=== PATIENT | male | born 1960 | race Caucasian/White ===

== ENCOUNTER 2023-06-12 21:57 | Inpatient (IN) | payer MEDICARE, OTHER ==
[~2023-06-12] VITALS: Ht 177.8 cm; Wt 99.8 kg
[2023-06-12 22:53] LABS: APPEARANCE,URINE CLEAR (CLEAR); BILIRUBIN,URINE NEGATIVE (NEGATIVE); BLOOD, URINE TRACE-INTA Ery/uL (NEGATIVE); COLOR,URINE YELLOW (YELLOW); KETONES,URINE NEGATIVE (NEGATIVE); LEUKOCYTE ESTERASE ,URINE 1+ (NEGATIVE); NITRITE, URINE NEGATIVE (NEGATIVE); PH,URINE 5.5 (5.0-8.0); PROTEIN,URINE NEGATIVE (NEGATIVE); UGLUCOSE 3+ mg/dL (NEGATIVE); UROBILINOGEN,URINE 0.2 EU/dL (0.2)
[2023-06-12 23:06] LABS: ADD URINE CULTURE YES; BACTERIA,URINE Rare /HPF (None Seen); RBC,URINE 0-2 /HPF (0-2); SQUAMOUS EPITHELIAL CELL,UR Few /HPF (None Seen)
[2023-06-12 23:27] LABS: AMPHETAMINE, URINE NEGATIVE (NEGATIVE); BARBITURATE, URINE NEGATIVE (NEGATIVE); BENZODIAZEPINE, URINE NEGATIVE (NEGATIVE); CANNABINOID, URINE NEGATIVE (NEGATIVE); COCCAINE, URINE NEGATIVE (NEGATIVE); OPIATE, URINE NEGATIVE (NEGATIVE); PHENCYCLIDINE SCREEN,URINE NEGATIVE (NEGATIVE)
[2023-06-12 23:30] LABS: BASOPHILS # (AUTO) 0.1 K/uL (0.0-0.2); BASOPHILS % (AUTO) 0.4 % (0.0-2.0); EOSINOPHILS # (AUTO) 0.3 K/uL (0.0-0.7); EOSINOPHILS % (AUTO) 2.1 % (0.0-6.0); HEMATOCRIT 50 % (39-51); HEMOGLOBIN 16.8 g/dL (13.5-17.5); LYMPHOCYTES # (AUTO) 2.4 K/uL (0.8-4.8); LYMPHOCYTES % (AUTO) 16.3 % (20.0-44.0); MEAN CORPUSCULAR HEMOGLOBIN 30 PG (26.0-33.0); MEAN CORPUSCULAR HGB CONC 34 g/dl (31.0-36.0); MEAN CORPUSCULAR VOLUME 90 fL (80-96); NEUTROPHILS # (AUTO) 10.8 K/uL (1.8-8.9); NEUTROPHILS % (AUTO) 74.2 % (43.0-81.0); PLATELET COUNT (AUTO) 219 K/uL (150-450); RED BLOOD CELL COUNT(AUTO) 5.54 MIL/uL (4.5-6.0); RED CELL DISTRIBUTION WIDTH 13.5 % (11.5-15.0); WHITE BLOOD COUNT (AUTO) 14.6 K/uL (4.3-11.0)
[2023-06-12 23:43] LABS: CALCIUM, SERUM 9.6 mg/dL (8.5-10.1); CARBON DIOXIDE 23 mmol/L (21-32); CHLORIDE 101 mmol/L (98-107); CREATININE 0.6 mg/dL (0.6-1.3); GLUCOSE 163 mg/dL (74-106); POTASSIUM 3.5 mmol/L (3.5-5.1); SODIUM SERUM 132 mmol/L (136-145); UREA NITROGEN, BLOOD 15 mg/dL (7-18)
[2023-06-12 23:48] LABS: ALANINE AMINOTRANSFERASE 27 U/L (12-78); ALBUMIN 3.2 g/dL (3.4-5.0); ALKALINE PHOSPHATASE 104 U/L (46-116); ASPARTATE AMINOTRANSFERASE 21 U/L (15-37); BILIRUBIN,DIRECT 0.2 mg/dL (0.0-0.2); BILIRUBIN,TOTAL 0.8 mg/dL (0.2-1.0); TOTAL PROTEIN, SERUM 7.7 g/dL (6.4-8.2)
[2023-06-12 23:52] LABS: ACETAMINOPHEN <10 ug/ml (10-30); ALCOHOL, BLOOD < 3 mg/dL (0-10); SALICYLATE 1.4 mg/dL (2.8-20.0)
[2023-06-13] MEDS ORDERED: OMEG1CAP PO (02:07)
[2023-06-13] MEDS ORDERED: INSU100V7 SQ (02:07)
[2023-06-13] MEDS ORDERED: OLAN15TA3 PO (02:07)
[2023-06-13] MEDS ORDERED: PRAZ2CAP2 PO (02:07)
[2023-06-13] MEDS ORDERED: SERT50TA PO (02:07)
[2023-06-13] MEDS ORDERED: EMPA25TA PO (02:07)
[2023-06-13] MEDS ORDERED: DULA1.5P SQ (02:07)
[2023-06-13] MEDS ORDERED: CHOL500062 PO (02:07)
[2023-06-13] MEDS ORDERED: LITH300T3 PO (02:07)
[2023-06-13] MEDS ORDERED: CLON-418 PO (02:07)
[2023-06-13] MEDS ORDERED: GABA600T12 PO (02:07)
[2023-06-13] MEDS ORDERED: DOCU100C36 PO (02:07)
[2023-06-13] MEDS ORDERED: METF-440 PO (02:07)
[2023-06-13] MEDS ORDERED: LOSA25TA27 PO (02:07)
[2023-06-13] MEDS ORDERED: MAGNESIUM HYDROXIDE 30 ML UDC PO PRN (03:00)
[2023-06-13] MEDS ORDERED: MAG HYDROX/AL HYDROX/SIMETH 30 ML UDC PO PRN (03:00)
[2023-06-13] MEDS ORDERED: BLOOD SUGAR DIAGNOSTIC 1 EACH STRIP IN ONE (03:00)
[2023-06-13] MEDS ORDERED: ZOLPIDEM TARTRATE 5 MG TABLET PO PRN (03:00)
[2023-06-13] MEDS: LORAZEPAM 1 MG TABLET PO PRN ×2 (03:11→21:09)
[2023-06-13] MEDS ORDERED: INSULIN REGULAR, HUMAN 100 UNIT/ML 3 ML VIAL SQ PRN (04:30)
[2023-06-13] MEDS ORDERED: DEXTROSE 50%-WATER 50 ML DISP.SYRIN IV PRN ×2 (04:30→10:00)
[2023-06-13 06:25] VITALS: BP 125/103; TEMP 97.7; O2SAT 95
[2023-06-13 08:00] VITALS: BP 154/97; TEMP 98.1; O2SAT 95
[2023-06-13] MEDS ORDERED: POLY15DR40 EACHEYE (08:19)
[2023-06-13] MEDS ORDERED: INSU100V3 SQ (08:19)
[2023-06-13] MEDS: BLOOD SUGAR DIAGNOSTIC 1 EACH STRIP IN SCH ×5 (08:25→22:05)
[2023-06-13] MEDS ORDERED: OLANZAPINE 10 MG VIAL IM ONE (12:00)
[2023-06-13] MEDS: GABAPENTIN 300 MG CAPSULE PO SCH ×2 (13:00→16:42)
[2023-06-13] MEDS ORDERED: CLONIDINE HCL 0.1 MG TABLET PO PRN (13:00)
[2023-06-13 13:04] LABS: THYROID STIMULATING HORMONE 0.624 uIU/mL (0.358-3.74)
[2023-06-13] MEDS: PRAZOSIN HCL 1 MG CAPSULE PO SCH (13:36)
[2023-06-13] MEDS: CHOLECALCIFEROL 1,000 UNIT TABLET (VIT D3) PO SCH (13:36)
[2023-06-13] MEDS: LITHIUM CARBONATE (300 MG CAP) 300 MG CAPSULE PO SCH ×2 (13:38→16:50)
[2023-06-13] MEDS: NICOTINE PATCH (14MG) 14 MG PATCH.TD24 TD SCH (14:11)
[2023-06-13 16:00] VITALS: BP 139/86; TEMP 98.2; O2SAT 95
[2023-06-13] MEDS: risperiDONE 1 MG TABLET PO SCH (16:40)
[2023-06-13] MEDS: LEVOFLOXACIN (250MG) 250 MG TABLET PO SCH (16:50)
[2023-06-13] MEDS: METFORMIN 500 MG TABLET PO SCH (16:50)
[2023-06-13] MEDS: POLYVINYL ALCOHOL 15 ML BOTTLE EACHEYE SCH (16:50)
[2023-06-13] MEDS ORDERED: Medication Not On Formulary EA (Omega-3 Fatty Acids/Fish Oil (Fish Oil 1,000 Mg Capsule) PO SCH (17:00)
[2023-06-13] MEDS: INSULIN REGULAR, HUMAN 100 UNIT/ML 3 ML VIAL SQ PRN ×2 (18:58→22:05)
[2023-06-13 20:00] VITALS: BP 111/71; TEMP 98.4; O2SAT 95
[2023-06-13] MEDS: INSULIN GLARGINE, 100 UNIT/ML CARTRIDGE SQ SCH (22:00)
[2023-06-14] MEDS: LORAZEPAM 1 MG TABLET PO PRN ×2 (05:52→14:59)
[2023-06-14] MEDS: BLOOD SUGAR DIAGNOSTIC 1 EACH STRIP IN SCH ×4 (06:40→22:33)
[2023-06-14] MEDS: INSULIN REGULAR, HUMAN 100 UNIT/ML 3 ML VIAL SQ PRN ×4 (06:46→22:21)
[2023-06-14 06:50] LABS: BASOPHILS % (AUTO) 0.4 % (0.0-2.0); EOSINOPHILS # (AUTO) 0.3 K/uL (0.0-0.7); EOSINOPHILS % (AUTO) 2.3 % (0.0-6.0); HEMATOCRIT 50 % (39-51); HEMOGLOBIN 16.7 g/dL (13.5-17.5); LYMPHOCYTES # (AUTO) 1.6 K/uL (0.8-4.8); LYMPHOCYTES % (AUTO) 13.5 % (20.0-44.0); MEAN CORPUSCULAR HEMOGLOBIN 30 PG (26.0-33.0); MEAN CORPUSCULAR HGB CONC 34 g/dl (31.0-36.0); MEAN CORPUSCULAR VOLUME 90 fL (80-96); MONOCYTES % (AUTO) 8.1 % (2.0-12.0); NEUTROPHILS % (AUTO) 75.7 % (43.0-81.0); PLATELET COUNT (AUTO) 226 K/uL (150-450); RED BLOOD CELL COUNT(AUTO) 5.55 MIL/uL (4.5-6.0); RED CELL DISTRIBUTION WIDTH 13.4 % (11.5-15.0); WHITE BLOOD COUNT (AUTO) 11.9 K/uL (4.3-11.0)
[2023-06-14 07:09] LABS: CREATININE 0.8 mg/dL (0.6-1.3)
[2023-06-14 07:16] LABS: CHOLESTEROL 148 mg/dL (<200); HDL CHOLESTEROL 35 mg/dL (40-60); LDL 87 mg/dL (0-99); TRIGLYCERIDES 143 mg/dL (30-150)
[2023-06-14 08:00] VITALS: BP 126/98; TEMP 98.1; O2SAT 98
[2023-06-14] MEDS: LITHIUM CARBONATE (300 MG CAP) 300 MG CAPSULE PO SCH ×3 (08:35→16:26)
[2023-06-14] MEDS: NICOTINE PATCH (14MG) 14 MG PATCH.TD24 TD SCH (08:35)
[2023-06-14] MEDS: METFORMIN 500 MG TABLET PO SCH ×2 (08:35→16:27)
[2023-06-14] MEDS: CHOLECALCIFEROL 1,000 UNIT TABLET (VIT D3) PO SCH (08:35)
[2023-06-14] MEDS: GABAPENTIN 300 MG CAPSULE PO SCH ×3 (08:35→16:26)
[2023-06-14] MEDS: risperiDONE 1 MG TABLET PO SCH ×2 (08:36→16:27)
[2023-06-14] MEDS: DOCUSATE SODIUM 100 MG CAPSULE PO SCH (08:36)
[2023-06-14] MEDS: EMPAGLIFLOZIN 25 MG TABLET PO SCH (08:37)
[2023-06-14] MEDS: LOSARTAN POTASSIUM 25 MG TABLET PO SCH (08:37)
[2023-06-14] MEDS: POLYVINYL ALCOHOL 15 ML BOTTLE EACHEYE SCH ×2 (08:38→16:29)
[2023-06-14] MEDS: PRAZOSIN HCL 1 MG CAPSULE PO SCH (08:43)
[2023-06-14 09:09] LABS: BILIRUBIN,TOTAL 0.5 mg/dL (0.2-1.0); CALCIUM, SERUM 9.2 mg/dL (8.5-10.1); CREATININE 0.7 mg/dL (0.6-1.3); POTASSIUM 3.9 mmol/L (3.5-5.1); TOTAL PROTEIN, SERUM 7.6 g/dL (6.4-8.2)
[2023-06-14] MEDS ORDERED: DULAGLUTIDE 3 MG SQ SCH (10:00)
[2023-06-14] MEDS: LEVOFLOXACIN (250MG) 250 MG TABLET PO SCH (15:00)
[2023-06-14 16:00] VITALS: BP 141/94; TEMP 97.9; O2SAT 97
[2023-06-14 20:00] VITALS: BP 132/84; TEMP 98.3; O2SAT 96
[2023-06-14] MEDS: INSULIN GLARGINE, 100 UNIT/ML CARTRIDGE SQ SCH (22:24)
[2023-06-15] MEDS: BLOOD SUGAR DIAGNOSTIC 1 EACH STRIP IN SCH ×4 (07:34→21:33)
[2023-06-15 08:00] VITALS: BP 137/97; TEMP 98.6; O2SAT 99
[2023-06-15] MEDS: DOCUSATE SODIUM 100 MG CAPSULE PO SCH (08:01)
[2023-06-15] MEDS: METFORMIN 500 MG TABLET PO SCH ×2 (08:03→16:20)
[2023-06-15] MEDS: CHOLECALCIFEROL 1,000 UNIT TABLET (VIT D3) PO SCH (08:03)
[2023-06-15] MEDS: GABAPENTIN 300 MG CAPSULE PO SCH ×3 (08:03→16:20)
[2023-06-15] MEDS: risperiDONE 1 MG TABLET PO SCH ×2 (08:03→16:20)
[2023-06-15] MEDS: PRAZOSIN HCL 1 MG CAPSULE PO SCH (08:03)
[2023-06-15] MEDS: LOSARTAN POTASSIUM 25 MG TABLET PO SCH (08:04)
[2023-06-15] MEDS: POLYVINYL ALCOHOL 15 ML BOTTLE EACHEYE SCH ×2 (08:04→17:01)
[2023-06-15] MEDS: INSULIN REGULAR, HUMAN 100 UNIT/ML 3 ML VIAL SQ PRN ×4 (08:05→21:40)
[2023-06-15] MEDS: LITHIUM CARBONATE (300 MG CAP) 300 MG CAPSULE PO SCH ×3 (08:10→16:20)
[2023-06-15] MEDS: NICOTINE PATCH (14MG) 14 MG PATCH.TD24 TD SCH (08:10)
[2023-06-15] MEDS: EMPAGLIFLOZIN 25 MG TABLET PO SCH (08:11)
[2023-06-15] MEDS: LEVOFLOXACIN (250MG) 250 MG TABLET PO SCH (15:15)
[2023-06-15 16:00] VITALS: BP 144/97; TEMP 98.4; O2SAT 100
[2023-06-15 20:00] VITALS: BP 146/93; TEMP 98.2; O2SAT 99
[2023-06-15] MEDS: INSULIN GLARGINE, 100 UNIT/ML CARTRIDGE SQ SCH (21:38)
[2023-06-15] MEDS: DAKINS QUARTER STRENGTH (0.125%) 480 ML BOTTLE TOP SCH (21:49)
[2023-06-16] MEDS: LORAZEPAM 1 MG TABLET PO PRN ×2 (01:25→12:19)
[2023-06-16 08:00] VITALS: BP 156/98; TEMP 98.2; O2SAT 95
[2023-06-16] MEDS: NICOTINE PATCH (14MG) 14 MG PATCH.TD24 TD SCH (08:41)
[2023-06-16] MEDS: BLOOD SUGAR DIAGNOSTIC 1 EACH STRIP IN SCH ×4 (08:41→22:28)
[2023-06-16] MEDS: risperiDONE 1 MG TABLET PO SCH ×2 (08:42→16:28)
[2023-06-16] MEDS: LITHIUM CARBONATE (300 MG CAP) 300 MG CAPSULE PO SCH ×3 (08:42→16:28)
[2023-06-16] MEDS: CHOLECALCIFEROL 1,000 UNIT TABLET (VIT D3) PO SCH (08:42)
[2023-06-16] MEDS: PRAZOSIN HCL 1 MG CAPSULE PO SCH (08:42)
[2023-06-16] MEDS: DOCUSATE SODIUM 100 MG CAPSULE PO SCH (08:42)
[2023-06-16] MEDS: GABAPENTIN 300 MG CAPSULE PO SCH ×3 (08:42→16:29)
[2023-06-16] MEDS: METFORMIN 500 MG TABLET PO SCH ×2 (08:42→16:29)
[2023-06-16] MEDS: POLYVINYL ALCOHOL 15 ML BOTTLE EACHEYE SCH ×2 (08:43→16:33)
[2023-06-16] MEDS: LOSARTAN POTASSIUM 25 MG TABLET PO SCH (08:43)
[2023-06-16] MEDS: EMPAGLIFLOZIN 25 MG TABLET PO SCH (08:43)
[2023-06-16] MEDS: INSULIN REGULAR, HUMAN 100 UNIT/ML 3 ML VIAL SQ PRN ×4 (08:47→22:30)
[2023-06-16] MEDS: DAKINS QUARTER STRENGTH (0.125%) 480 ML BOTTLE TOP SCH (09:00)
[2023-06-16] MEDS: LEVOFLOXACIN (250MG) 250 MG TABLET PO SCH (15:12)
[2023-06-16 16:00] VITALS: BP 104/82; TEMP 97.7; O2SAT 94
[2023-06-16] MEDS: ACETAMINOPHEN 325 MG TABLET PO PRN (17:40)
[2023-06-16 20:09] VITALS: BP 120/79; TEMP 98.4; O2SAT 95
[2023-06-16] MEDS: INSULIN GLARGINE, 100 UNIT/ML CARTRIDGE SQ SCH (22:29)
[2023-06-17] MEDS: ACETAMINOPHEN 325 MG TABLET PO PRN (01:56)
[2023-06-17 08:00] VITALS: BP 151/98; TEMP 98.6; O2SAT 100
[2023-06-17] MEDS: BLOOD SUGAR DIAGNOSTIC 1 EACH STRIP IN SCH ×4 (08:17→21:14)
[2023-06-17] MEDS: NICOTINE PATCH (14MG) 14 MG PATCH.TD24 TD SCH (08:34)
[2023-06-17] MEDS: PRAZOSIN HCL 1 MG CAPSULE PO SCH (08:35)
[2023-06-17] MEDS: DOCUSATE SODIUM 100 MG CAPSULE PO SCH (08:36)
[2023-06-17] MEDS: METFORMIN 500 MG TABLET PO SCH ×2 (08:36→16:11)
[2023-06-17] MEDS: POLYVINYL ALCOHOL 15 ML BOTTLE EACHEYE SCH ×2 (08:36→16:12)
[2023-06-17] MEDS: LITHIUM CARBONATE (300 MG CAP) 300 MG CAPSULE PO SCH ×3 (08:36→16:12)
[2023-06-17] MEDS: CHOLECALCIFEROL 1,000 UNIT TABLET (VIT D3) PO SCH (08:36)
[2023-06-17] MEDS: GABAPENTIN 300 MG CAPSULE PO SCH ×3 (08:36→16:12)
[2023-06-17] MEDS: risperiDONE 1 MG TABLET PO SCH ×2 (08:37→16:12)
[2023-06-17] MEDS: LOSARTAN POTASSIUM 25 MG TABLET PO SCH (08:37)
[2023-06-17] MEDS: EMPAGLIFLOZIN 25 MG TABLET PO SCH (08:37)
[2023-06-17] MEDS: INSULIN REGULAR, HUMAN 100 UNIT/ML 3 ML VIAL SQ PRN ×4 (08:41→21:20)
[2023-06-17] MEDS: DAKINS QUARTER STRENGTH (0.125%) 480 ML BOTTLE TOP SCH (08:45)
[2023-06-17] MEDS: CLINDAMYCIN HCL 150 MG CAPSULE PO SCH ×3 (13:20→23:22)
[2023-06-17] MEDS: LEVOFLOXACIN (250MG) 250 MG TABLET PO SCH (15:59)
[2023-06-17 16:00] VITALS: BP 129/90; TEMP 98.4; O2SAT 100
[2023-06-17 20:21] VITALS: BP 150/96; TEMP 98.1; O2SAT 96
[2023-06-17] MEDS: INSULIN GLARGINE, 100 UNIT/ML CARTRIDGE SQ SCH (21:18)
[2023-06-18] MEDS: CLINDAMYCIN HCL 150 MG CAPSULE PO SCH ×4 (06:16→23:14)
[2023-06-18] MEDS: LORAZEPAM 1 MG TABLET PO PRN (07:39)
[2023-06-18] MEDS: BLOOD SUGAR DIAGNOSTIC 1 EACH STRIP IN SCH ×4 (07:39→21:51)
[2023-06-18 08:00] VITALS: BP 156/108; TEMP 98.7; O2SAT 98
[2023-06-18] MEDS: risperiDONE 1 MG TABLET PO SCH ×2 (08:39→16:46)
[2023-06-18] MEDS: POLYVINYL ALCOHOL 15 ML BOTTLE EACHEYE SCH ×2 (08:39→16:49)
[2023-06-18] MEDS: LITHIUM CARBONATE (300 MG CAP) 300 MG CAPSULE PO SCH ×3 (08:39→16:47)
[2023-06-18] MEDS: NICOTINE PATCH (14MG) 14 MG PATCH.TD24 TD SCH (08:39)
[2023-06-18] MEDS: METFORMIN 500 MG TABLET PO SCH ×2 (08:39→16:46)
[2023-06-18] MEDS: CHOLECALCIFEROL 1,000 UNIT TABLET (VIT D3) PO SCH (08:39)
[2023-06-18] MEDS: LOSARTAN POTASSIUM 25 MG TABLET PO SCH (08:40)
[2023-06-18] MEDS: PRAZOSIN HCL 1 MG CAPSULE PO SCH (08:40)
[2023-06-18] MEDS: GABAPENTIN 300 MG CAPSULE PO SCH ×3 (08:40→16:46)
[2023-06-18] MEDS: DOCUSATE SODIUM 100 MG CAPSULE PO SCH (08:41)
[2023-06-18] MEDS: EMPAGLIFLOZIN 25 MG TABLET PO SCH (08:44)
[2023-06-18] MEDS: DAKINS QUARTER STRENGTH (0.125%) 480 ML BOTTLE TOP SCH (08:45)
[2023-06-18] MEDS: INSULIN REGULAR, HUMAN 100 UNIT/ML 3 ML VIAL SQ PRN ×3 (08:46→21:56)
[2023-06-18] MEDS: LEVOFLOXACIN (250MG) 250 MG TABLET PO SCH (15:47)
[2023-06-18 16:08] VITALS: BP 138/95; TEMP 99.7; O2SAT 93
[2023-06-18 20:00] VITALS: BP 120/82; TEMP 98.6; O2SAT 96
[2023-06-18] MEDS: TRAZODONE 50 MG TABLET PO SCH (21:51)
[2023-06-18] MEDS: INSULIN GLARGINE, 100 UNIT/ML CARTRIDGE SQ SCH (21:54)
[2023-06-19] MEDS: ACETAMINOPHEN 325 MG TABLET PO PRN ×2 (05:19→15:42)
[2023-06-19] MEDS: CLINDAMYCIN HCL 150 MG CAPSULE PO SCH ×4 (05:19→23:45)
[2023-06-19 08:00] VITALS: BP 136/91; TEMP 97.5; O2SAT 96
[2023-06-19] MEDS: BLOOD SUGAR DIAGNOSTIC 1 EACH STRIP IN SCH ×4 (09:21→21:42)
[2023-06-19] MEDS: POLYVINYL ALCOHOL 15 ML BOTTLE EACHEYE SCH ×2 (09:22→17:19)
[2023-06-19] MEDS: DOCUSATE SODIUM 100 MG CAPSULE PO SCH (09:22)
[2023-06-19] MEDS: LITHIUM CARBONATE (300 MG CAP) 300 MG CAPSULE PO SCH ×3 (09:23→17:20)
[2023-06-19] MEDS: LOSARTAN POTASSIUM 25 MG TABLET PO SCH (09:23)
[2023-06-19] MEDS: CHOLECALCIFEROL 1,000 UNIT TABLET (VIT D3) PO SCH (09:23)
[2023-06-19] MEDS: GABAPENTIN 300 MG CAPSULE PO SCH ×3 (09:23→17:19)
[2023-06-19] MEDS: EMPAGLIFLOZIN 25 MG TABLET PO SCH (09:24)
[2023-06-19] MEDS: PRAZOSIN HCL 1 MG CAPSULE PO SCH (09:24)
[2023-06-19] MEDS: NICOTINE PATCH (14MG) 14 MG PATCH.TD24 TD SCH (09:25)
[2023-06-19] MEDS: METFORMIN 500 MG TABLET PO SCH ×2 (09:29→17:19)
[2023-06-19] MEDS: DAKINS QUARTER STRENGTH (0.125%) 480 ML BOTTLE TOP SCH (09:29)
[2023-06-19] MEDS: INSULIN REGULAR, HUMAN 100 UNIT/ML 3 ML VIAL SQ PRN ×3 (10:07→21:46)
[2023-06-19] MEDS: LEVOFLOXACIN (250MG) 250 MG TABLET PO SCH (15:42)
[2023-06-19 16:00] VITALS: BP 133/95; TEMP 98.6; O2SAT 97
[2023-06-19] MEDS: risperiDONE 1 MG TABLET PO SCH (17:20)
[2023-06-19] MEDS: LORAZEPAM 1 MG TABLET PO PRN (19:56)
[2023-06-19 20:29] VITALS: BP 138/90; TEMP 98; O2SAT 97
[2023-06-19] MEDS: TRAZODONE 50 MG TABLET PO SCH (21:34)
[2023-06-19] MEDS: INSULIN GLARGINE, 100 UNIT/ML CARTRIDGE SQ SCH (21:47)
[2023-06-20] MEDS: CLINDAMYCIN HCL 150 MG CAPSULE PO SCH ×3 (06:29→19:01)
[2023-06-20] MEDS: BLOOD SUGAR DIAGNOSTIC 1 EACH STRIP IN SCH ×4 (07:43→21:23)
[2023-06-20] MEDS: ACETAMINOPHEN 325 MG TABLET PO PRN (07:43)
[2023-06-20 08:07] VITALS: BP 136/87; TEMP 99.5; O2SAT 94
[2023-06-20] MEDS: DOCUSATE SODIUM 100 MG CAPSULE PO SCH (08:31)
[2023-06-20] MEDS: LITHIUM CARBONATE (300 MG CAP) 300 MG CAPSULE PO SCH ×3 (08:31→16:09)
[2023-06-20] MEDS: LOSARTAN POTASSIUM 25 MG TABLET PO SCH (08:31)
[2023-06-20] MEDS: risperiDONE 1 MG TABLET PO SCH ×2 (08:32→16:09)
[2023-06-20] MEDS: METFORMIN 500 MG TABLET PO SCH ×2 (08:32→16:10)
[2023-06-20] MEDS: GABAPENTIN 300 MG CAPSULE PO SCH ×3 (08:32→16:09)
[2023-06-20] MEDS: NICOTINE PATCH (14MG) 14 MG PATCH.TD24 TD SCH (08:32)
[2023-06-20] MEDS: CHOLECALCIFEROL 1,000 UNIT TABLET (VIT D3) PO SCH (08:32)
[2023-06-20] MEDS: PRAZOSIN HCL 1 MG CAPSULE PO SCH (08:33)
[2023-06-20] MEDS: POLYVINYL ALCOHOL 15 ML BOTTLE EACHEYE SCH ×2 (08:36→16:10)
[2023-06-20] MEDS: EMPAGLIFLOZIN 25 MG TABLET PO SCH (08:36)
[2023-06-20] MEDS: INSULIN REGULAR, HUMAN 100 UNIT/ML 3 ML VIAL SQ PRN ×3 (08:36→21:39)
[2023-06-20] MEDS: DAKINS QUARTER STRENGTH (0.125%) 480 ML BOTTLE TOP SCH (09:00)
[2023-06-20 14:48] VITALS: BP 137/88; TEMP 98.8; O2SAT 95
[2023-06-20] MEDS: LEVOFLOXACIN (250MG) 250 MG TABLET PO SCH (15:46)
[2023-06-20] MEDS: TRAZODONE 50 MG TABLET PO SCH (21:13)
[2023-06-20] MEDS: INSULIN GLARGINE, 100 UNIT/ML CARTRIDGE SQ SCH (21:38)
[2023-06-20 22:02] VITALS: BP 128/91; TEMP 98.7; O2SAT 100
[2023-06-21] MEDS: CLINDAMYCIN HCL 150 MG CAPSULE PO SCH ×5 (00:07→23:20)
[2023-06-21] MEDS: BLOOD SUGAR DIAGNOSTIC 1 EACH STRIP IN SCH ×4 (07:58→21:41)
[2023-06-21 08:00] VITALS: BP 138/99; TEMP 98; O2SAT 95
[2023-06-21] MEDS: NICOTINE PATCH (14MG) 14 MG PATCH.TD24 TD SCH (08:07)
[2023-06-21] MEDS: CHOLECALCIFEROL 1,000 UNIT TABLET (VIT D3) PO SCH (08:07)
[2023-06-21] MEDS: DOCUSATE SODIUM 100 MG CAPSULE PO SCH (08:07)
[2023-06-21] MEDS: METFORMIN 500 MG TABLET PO SCH ×2 (08:08→16:26)
[2023-06-21] MEDS: GABAPENTIN 300 MG CAPSULE PO SCH ×3 (08:08→16:26)
[2023-06-21] MEDS: risperiDONE 1 MG TABLET PO SCH ×2 (08:08→16:26)
[2023-06-21] MEDS: LITHIUM CARBONATE (300 MG CAP) 300 MG CAPSULE PO SCH ×3 (08:08→16:26)
[2023-06-21] MEDS: PRAZOSIN HCL 1 MG CAPSULE PO SCH (08:09)
[2023-06-21] MEDS: POLYVINYL ALCOHOL 15 ML BOTTLE EACHEYE SCH ×2 (08:10→17:02)
[2023-06-21] MEDS: LOSARTAN POTASSIUM 25 MG TABLET PO SCH (08:10)
[2023-06-21] MEDS: INSULIN REGULAR, HUMAN 100 UNIT/ML 3 ML VIAL SQ PRN ×4 (08:12→21:48)
[2023-06-21] MEDS: EMPAGLIFLOZIN 25 MG TABLET PO SCH (08:19)
[2023-06-21] MEDS: DAKINS QUARTER STRENGTH (0.125%) 480 ML BOTTLE TOP SCH (09:06)
[2023-06-21 16:00] VITALS: BP 158/99; TEMP 98; O2SAT 97
[2023-06-21 20:00] VITALS: BP 109/70; TEMP 98.3; O2SAT 96
[2023-06-21] MEDS: TRAZODONE 50 MG TABLET PO SCH (21:42)
[2023-06-21] MEDS: INSULIN GLARGINE, 100 UNIT/ML CARTRIDGE SQ SCH (21:47)
[2023-06-22] MEDS: CLINDAMYCIN HCL 150 MG CAPSULE PO SCH ×3 (05:09→17:07)
[2023-06-22] MEDS: BLOOD SUGAR DIAGNOSTIC 1 EACH STRIP IN SCH ×4 (07:36→22:00)
[2023-06-22 08:00] VITALS: BP 144/97; TEMP 98.1; O2SAT 97
[2023-06-22] MEDS: LITHIUM CARBONATE (300 MG CAP) 300 MG CAPSULE PO SCH ×3 (08:12→16:13)
[2023-06-22] MEDS: CHOLECALCIFEROL 1,000 UNIT TABLET (VIT D3) PO SCH (08:12)
[2023-06-22] MEDS: PRAZOSIN HCL 1 MG CAPSULE PO SCH (08:12)
[2023-06-22] MEDS: NICOTINE PATCH (14MG) 14 MG PATCH.TD24 TD SCH (08:12)
[2023-06-22] MEDS: GABAPENTIN 300 MG CAPSULE PO SCH ×3 (08:12→16:13)
[2023-06-22] MEDS: DOCUSATE SODIUM 100 MG CAPSULE PO SCH (08:12)
[2023-06-22] MEDS: risperiDONE 1 MG TABLET PO SCH ×2 (08:12→16:13)
[2023-06-22] MEDS: LOSARTAN POTASSIUM 25 MG TABLET PO SCH (08:13)
[2023-06-22] MEDS: METFORMIN 500 MG TABLET PO SCH ×2 (08:13→16:13)
[2023-06-22] MEDS: INSULIN REGULAR, HUMAN 100 UNIT/ML 3 ML VIAL SQ PRN ×2 (08:21→17:07)
[2023-06-22] MEDS: EMPAGLIFLOZIN 25 MG TABLET PO SCH (08:21)
[2023-06-22] MEDS: DAKINS QUARTER STRENGTH (0.125%) 480 ML BOTTLE TOP SCH (09:00)
[2023-06-22] MEDS: POLYVINYL ALCOHOL 15 ML BOTTLE EACHEYE SCH ×2 (09:21→17:07)
[2023-06-22] MEDS: DIVALPROEX SODIUM 125 MG CAP.SPRINK PO SCH ×2 (12:12→16:13)
[2023-06-22 16:00] VITALS: BP 134/81; TEMP 98.9; O2SAT 100
[2023-06-22 20:00] VITALS: BP 139/96; TEMP 98.4; O2SAT 97
[2023-06-22] MEDS: INSULIN GLARGINE, 100 UNIT/ML CARTRIDGE SQ SCH (22:00)
[2023-06-22] MEDS: TRAZODONE 50 MG TABLET PO SCH (22:10)
[2023-06-23] MEDS: CLINDAMYCIN HCL 150 MG CAPSULE PO SCH ×4 (06:00→18:02)
[2023-06-23] MEDS: BLOOD SUGAR DIAGNOSTIC 1 EACH STRIP IN SCH ×4 (07:32→21:27)
[2023-06-23] MEDS: INSULIN REGULAR, HUMAN 100 UNIT/ML 3 ML VIAL SQ PRN ×4 (07:49→21:35)
[2023-06-23 08:00] VITALS: BP 152/95; TEMP 98.2; O2SAT 98
[2023-06-23] MEDS: METFORMIN 500 MG TABLET PO SCH ×2 (08:16→16:20)
[2023-06-23] MEDS: DIVALPROEX SODIUM 125 MG CAP.SPRINK PO SCH ×3 (08:17→16:20)
[2023-06-23] MEDS: CHOLECALCIFEROL 1,000 UNIT TABLET (VIT D3) PO SCH (08:17)
[2023-06-23] MEDS: DOCUSATE SODIUM 100 MG CAPSULE PO SCH (08:17)
[2023-06-23] MEDS: NICOTINE PATCH (14MG) 14 MG PATCH.TD24 TD SCH (08:17)
[2023-06-23] MEDS: LOSARTAN POTASSIUM 25 MG TABLET PO SCH (08:17)
[2023-06-23] MEDS: GABAPENTIN 300 MG CAPSULE PO SCH ×3 (08:17→16:20)
[2023-06-23] MEDS: PRAZOSIN HCL 1 MG CAPSULE PO SCH (08:18)
[2023-06-23] MEDS: risperiDONE 1 MG TABLET PO SCH ×2 (08:18→16:20)
[2023-06-23] MEDS: LITHIUM CARBONATE (300 MG CAP) 300 MG CAPSULE PO SCH ×3 (08:19→16:20)
[2023-06-23] MEDS: EMPAGLIFLOZIN 25 MG TABLET PO SCH (08:19)
[2023-06-23] MEDS: POLYVINYL ALCOHOL 15 ML BOTTLE EACHEYE SCH ×2 (08:20→16:24)
[2023-06-23] MEDS: DAKINS QUARTER STRENGTH (0.125%) 480 ML BOTTLE TOP SCH (09:00)
[2023-06-23 16:00] VITALS: BP 127/83; TEMP 97.7; O2SAT 99
[2023-06-23 20:00] VITALS: BP 131/92; TEMP 98.3; O2SAT 95
[2023-06-23] MEDS: TRAZODONE 50 MG TABLET PO SCH (21:26)
[2023-06-23] MEDS: INSULIN GLARGINE, 100 UNIT/ML CARTRIDGE SQ SCH (21:32)
[2023-06-24] MEDS: CLINDAMYCIN HCL 150 MG CAPSULE PO SCH ×4 (05:04→18:05)
[2023-06-24 08:00] VITALS: BP 160/99; TEMP 99.3; O2SAT 97
[2023-06-24] MEDS: BLOOD SUGAR DIAGNOSTIC 1 EACH STRIP IN SCH ×3 (08:13→17:12)
[2023-06-24] MEDS: NICOTINE PATCH (14MG) 14 MG PATCH.TD24 TD SCH (08:43)
[2023-06-24] MEDS: GABAPENTIN 300 MG CAPSULE PO SCH ×3 (08:43→17:11)
[2023-06-24] MEDS: LOSARTAN POTASSIUM 25 MG TABLET PO SCH (08:44)
[2023-06-24] MEDS: DOCUSATE SODIUM 100 MG CAPSULE PO SCH (08:44)
[2023-06-24] MEDS: CHOLECALCIFEROL 1,000 UNIT TABLET (VIT D3) PO SCH (08:44)
[2023-06-24] MEDS: METFORMIN 500 MG TABLET PO SCH ×2 (08:44→17:12)
[2023-06-24] MEDS: LITHIUM CARBONATE (300 MG CAP) 300 MG CAPSULE PO SCH ×3 (08:44→17:11)
[2023-06-24] MEDS: DIVALPROEX SODIUM 125 MG CAP.SPRINK PO SCH ×3 (08:44→17:12)
[2023-06-24] MEDS: PRAZOSIN HCL 1 MG CAPSULE PO SCH (08:45)
[2023-06-24] MEDS: risperiDONE 1 MG TABLET PO SCH ×2 (08:45→17:11)
[2023-06-24] MEDS: EMPAGLIFLOZIN 25 MG TABLET PO SCH (08:48)
[2023-06-24] MEDS: POLYVINYL ALCOHOL 15 ML BOTTLE EACHEYE SCH ×2 (08:48→17:11)
[2023-06-24] MEDS: DAKINS QUARTER STRENGTH (0.125%) 480 ML BOTTLE TOP SCH (08:49)
[2023-06-24 16:00] VITALS: BP 159/98; TEMP 98.4; O2SAT 98
[2023-06-24] MEDS: INSULIN REGULAR, HUMAN 100 UNIT/ML 3 ML VIAL SQ PRN (18:05)
[2023-06-24] MEDS: LORAZEPAM 1 MG TABLET PO PRN (18:24)
[2023-06-25] MEDS ORDERED: ACET-868 PO (08:22)
[2023-06-25] MEDS ORDERED: SODI473S8 TP (08:22)
[2023-06-25] MEDS ORDERED: CLIN300C12 PO (08:22)
[2023-06-25] MEDS ORDERED: NICO-762 TD (08:22)
[2023-06-25] MEDS ORDERED: DEXT50DI8 IV (10:32)
[2023-06-25] MEDS ORDERED: TRAZ-182 PO (10:32)
[2023-06-25] MEDS ORDERED: LORA-259 PO (10:32)
[2023-06-25] MEDS ORDERED: RISP4TAB70 PO (10:32)
[2023-06-25] MEDS ORDERED: DIVA125C5 PO (10:32)
== END 2023-06-24 19:35 | DRG 885 ==
LOC: ER 22:04 → GPS 06-13 02:12
PROVIDERS: ADMIT Psychiatry & Neurology Psychiatry; ATTEND Nurse Practitioner Acute Care
DX: F31.2 Bipolar disorder, current episode manic severe with psychotic features (principal); E11.65 Type 2 diabetes mellitus with hyperglycemia; E44.1 Mild protein-calorie malnutrition; G93.49 Other encephalopathy; N39.0 Urinary tract infection, site not specified; E87.1 Hypo-osmolality and hyponatremia; F29 Unspecified psychosis not due to a substance or known physiological condition; I10 Essential (primary) hypertension; Z79.85 Long-term (current) use of injectable non-insulin antidiabetic drugs; Z79.4 Long term (current) use of insulin; F17.210 Nicotine dependence, cigarettes, uncomplicated; E88.09 Other disorders of plasma-protein metabolism, not elsewhere classified; Z79.899 Other long term (current) drug therapy; E66.9 Obesity, unspecified; Z68.32 Body mass index [BMI] 32.0-32.9, adult; E86.1 Hypovolemia; F41.9 Anxiety disorder, unspecified; B96.89 Other specified bacterial agents as the cause of diseases classified elsewhere; L98.9 Disorder of the skin and subcutaneous tissue, unspecified; D72.829 Elevated white blood cell count, unspecified; R45.1 Restlessness and agitation
CPT/HCPCS: 36415; 71045-TC; 76870-TC; 80048-TC; 80053-TC; 80061-TC; 80076-TC; 81001; 82565-TC; 82962-TC; 84439-TC; 84443-TC; 85025-TC; 87081-TC; 87086-TC; C9803; G0480; J1815; J3490

== ENCOUNTER 2023-06-24 19:46 | Inpatient (IN) | payer MEDICARE, OTHER ==
[~2023-06-24] VITALS: Ht 172.7 cm; Wt 92.3 kg
[~2023-06-24 19:46] MED LIST: CHOL500062 PO; CLON-418 PO; DOCU100C36 PO; DULA1.5P SQ; EMPA25TA PO; GABA600T12 PO; INSU100V3 SQ; INSU100V7 SQ; LITH300T3 PO; LOSA25TA27 PO; METF-440 PO; OLAN15TA3 PO; OMEG1CAP PO; POLY15DR40 EACHEYE; PRAZ2CAP2 PO; SERT50TA PO
[2023-06-24] MEDS ORDERED: VANCOMYCIN 1 GM in IV D5W 250 ML IV ONE (21:30)
[2023-06-24] MEDS ORDERED: AZTREONAM 2 G in IV NS 0.9% 100 ML IV ONE (21:30)
[2023-06-24 21:52] LABS: APPEARANCE,URINE CLEAR (CLEAR); BILIRUBIN,URINE NEGATIVE (NEGATIVE); BLOOD, URINE TRACE-INTA Ery/uL (NEGATIVE); COLOR,URINE YELLOW (YELLOW); KETONES,URINE NEGATIVE (NEGATIVE); LEUKOCYTE ESTERASE ,URINE NEGATIVE (NEGATIVE); NITRITE, URINE NEGATIVE (NEGATIVE); PH,URINE 6.5 (5.0-8.0); PROTEIN,URINE NEGATIVE (NEGATIVE); UGLUCOSE 3+ mg/dL (NEGATIVE); UROBILINOGEN,URINE 0.2 EU/dL (0.2)
[2023-06-24 22:12] LABS: WBC,URINE 0-2 /HPF (0-3)
[2023-06-24 22:13] LABS: ADD URINE CULTURE NO; BACTERIA,URINE None seen /HPF (None Seen)
[2023-06-24] MEDS ORDERED: AZTREONAM 1 G VIAL ONE (22:13)
[2023-06-24] MEDS ORDERED: VANCOMYCIN 1 GM /D5W 250 ML PB IV ONE (22:13)
[2023-06-24 22:20] LABS: BASOPHILS # (AUTO) 0.1 K/uL (0.0-0.2); BASOPHILS % (AUTO) 0.5 % (0.0-2.0); EOSINOPHILS # (AUTO) 0.2 K/uL (0.0-0.7); EOSINOPHILS % (AUTO) 1.5 % (0.0-6.0); HEMATOCRIT 41 % (39-51); HEMOGLOBIN 13.8 g/dL (13.5-17.5); LYMPHOCYTES # (AUTO) 1.6 K/uL (0.8-4.8); LYMPHOCYTES % (AUTO) 11.1 % (20.0-44.0); MEAN CORPUSCULAR HEMOGLOBIN 30 PG (26.0-33.0); MEAN CORPUSCULAR HGB CONC 34 g/dl (31.0-36.0); MEAN CORPUSCULAR VOLUME 90 fL (80-96); MONOCYTES # (AUTO) 1.2 K/uL (0.1-1.30); MONOCYTES % (AUTO) 8.5 % (2.0-12.0); NEUTROPHILS # (AUTO) 11.4 K/uL (1.8-8.9); NEUTROPHILS % (AUTO) 78.4 % (43.0-81.0); PLATELET COUNT (AUTO) 268 K/uL (150-450); RED BLOOD CELL COUNT(AUTO) 4.57 MIL/uL (4.5-6.0); RED CELL DISTRIBUTION WIDTH 13.5 % (11.5-15.0); WHITE BLOOD COUNT (AUTO) 14.5 K/uL (4.3-11.0)
[2023-06-24 22:36] LABS: CREATININE 0.9 mg/dL (0.6-1.3)
[2023-06-24 22:42] LABS: ALBUMIN 1.9 g/dL (3.4-5.0); BILIRUBIN,DIRECT 0.1 mg/dL (0.0-0.2); BILIRUBIN,TOTAL 0.3 mg/dL (0.2-1.0); TOTAL PROTEIN, SERUM 7.7 g/dL (6.4-8.2)
[2023-06-24 22:44] LABS: LACTIC ACID 1.8 mmol/L (0.4-2.0)
[2023-06-24 22:48] LABS: INR 1.07 (0.91-1.10); PARTIAL THROMBOPLASTIN TIME 36.1 SEC (24.3-34.3); PROTHROMBIN TIME 11.3 SECS (9.2-11.1)
[2023-06-24] MEDS ORDERED: MAGNESIUM HYDROXIDE 30 ML UDC PO PRN (23:00)
[2023-06-24] MEDS ORDERED: ONDANSETRON HCL/PF 4 MG/2 ML VIAL IVP PRN (23:00)
[2023-06-24] MEDS ORDERED: IV NS 0.9% 1,000 ML IV PRN (23:00)
[2023-06-24] MEDS ORDERED: Z GUARD REMEDY 4 OZ OINT TP PRN (23:00)
[2023-06-24] MEDS ORDERED: ZOLPIDEM TARTRATE 5 MG TABLET PO PRN (23:00)
[2023-06-24] MEDS ORDERED: ACETAMINOPHEN 325 MG TABLET PO PRN (23:00)
[2023-06-24] MEDS ORDERED: MAG HYDROX/AL HYDROX/SIMETH 30 ML UDC PO PRN (23:00)
[2023-06-25] VITALS (7 sets, daily range): BP systolic 121–155; BP diastolic 74–96; TEMP 97.6–98.8; O2SAT 96–100
[2023-06-25] MEDS ORDERED: DEXTROSE 50%-WATER 50 ML DISP.SYRIN IV PRN (02:30)
[2023-06-25] MEDS ORDERED: AZTREONAM 1 G in IV NS 0.9% 100 ML IV SCH (05:00)
[2023-06-25] MEDS ORDERED: AZTREONAM 1 G VIAL ONE (05:14)
[2023-06-25 05:53] LABS: BASOPHILS % (AUTO) 0.2 % (0.0-2.0); EOSINOPHILS # (AUTO) 0.1 K/uL (0.0-0.7); EOSINOPHILS % (AUTO) 1.1 % (0.0-6.0); HEMATOCRIT 41 % (39-51); HEMOGLOBIN 13.5 g/dL (13.5-17.5); LYMPHOCYTES # (AUTO) 1.3 K/uL (0.8-4.8); LYMPHOCYTES % (AUTO) 9.9 % (20.0-44.0); MEAN CORPUSCULAR HEMOGLOBIN 30 PG (26.0-33.0); MEAN CORPUSCULAR HGB CONC 33 g/dl (31.0-36.0); MEAN CORPUSCULAR VOLUME 91 fL (80-96); MONOCYTES # (AUTO) 1.1 K/uL (0.1-1.30); MONOCYTES % (AUTO) 8.4 % (2.0-12.0); NEUTROPHILS # (AUTO) 10.4 K/uL (1.8-8.9); NEUTROPHILS % (AUTO) 80.4 % (43.0-81.0); PLATELET COUNT (AUTO) 271 K/uL (150-450); RED BLOOD CELL COUNT(AUTO) 4.53 MIL/uL (4.5-6.0); RED CELL DISTRIBUTION WIDTH 13.1 % (11.5-15.0); WHITE BLOOD COUNT (AUTO) 12.9 K/uL (4.3-11.0)
[2023-06-25 06:03] LABS: CREATININE 0.7 mg/dL (0.6-1.3); MAGNESIUM 2.2 mg/dL (1.8-2.4); PHOSPHORUS 4.6 mg/dL (2.5-4.9); POTASSIUM 3.9 mmol/L (3.5-5.1)
[2023-06-25 06:28] LABS: ERYTHROCYTE SEDIMENTATION RATE 53 MM/HR (0-20)
[2023-06-25] MEDS: BLOOD SUGAR DIAGNOSTIC 1 EACH STRIP IN SCH ×4 (06:32→22:12)
[2023-06-25] MEDS: INSULIN REGULAR, HUMAN 100 UNIT/ML 3 ML VIAL SQ PRN ×3 (06:34→22:21)
[2023-06-25] MEDS: POLYVINYL ALCOHOL 15 ML BOTTLE EACHEYE SCH ×2 (08:16→17:00)
[2023-06-25] MEDS: DOCUSATE SODIUM 100 MG CAPSULE PO SCH (08:18)
[2023-06-25] MEDS: VANCOMYCIN 1.25 GM in IV D5W 250 ML IV SCH ×2 (08:18→22:26)
[2023-06-25] MEDS: LOSARTAN POTASSIUM 25 MG TABLET PO SCH (08:19)
[2023-06-25] MEDS: EMPAGLIFLOZIN 25 MG TABLET PO SCH (08:19)
[2023-06-25] MEDS: LITHIUM CARBONATE (300 MG CAP) 300 MG CAPSULE PO SCH ×3 (08:20→17:00)
[2023-06-25] MEDS: CHOLECALCIFEROL 1,000 UNIT TABLET (VIT D3) PO SCH (08:20)
[2023-06-25] MEDS: GABAPENTIN 300 MG CAPSULE PO SCH ×3 (08:21→17:00)
[2023-06-25] MEDS: PRAZOSIN HCL 1 MG CAPSULE PO SCH (08:21)
[2023-06-25] MEDS ORDERED: NICO-762 TD (08:22)
[2023-06-25] MEDS ORDERED: SODI473S8 TP (08:22)
[2023-06-25] MEDS ORDERED: ACET-868 PO (08:22)
[2023-06-25] MEDS ORDERED: CLIN300C12 PO (08:22)
[2023-06-25] MEDS ORDERED: SERTRALINE HCL 50 MG TABLET PO SCH (09:00)
[2023-06-25] MEDS ORDERED: Medication Not On Formulary EA (Omega-3 Fatty Acids/Fish Oil (Fish Oil 1,000 Mg Capsule) PO SCH (09:00)
[2023-06-25] MEDS: risperiDONE 1 MG TABLET PO SCH ×2 (10:00→17:00)
[2023-06-25] MEDS ORDERED: CLONIDINE HCL 0.1 MG TABLET PO PRN (10:00)
[2023-06-25] MEDS ORDERED: LORA-259 PO (10:32)
[2023-06-25] MEDS ORDERED: DEXT50DI8 IV (10:32)
[2023-06-25] MEDS ORDERED: TRAZ-182 PO (10:32)
[2023-06-25] MEDS ORDERED: RISP4TAB70 PO (10:32)
[2023-06-25] MEDS ORDERED: DIVA125C5 PO (10:32)
[2023-06-25] MEDS: METRONIDAZOLE 500MG/ NS 100ML 500 MG in PREMIX 1 EA IV SCH ×2 (11:12→18:13)
[2023-06-25] MEDS: DIVALPROEX SODIUM 125 MG CAP.SPRINK PO SCH ×2 (12:28→17:00)
[2023-06-25] MEDS ORDERED: CT SWABBABLE VALVE TRANS SET 1 EA INFUS.SET MC ONE (14:33)
[2023-06-25] MEDS ORDERED: IV NS 0.9% 250 ML IV ONE (14:33)
[2023-06-25] MEDS ORDERED: IOHEXOL-300 100 ML VIAL IV ONE (14:33)
[2023-06-25] MEDS: CLOTRIMAZOLE 1% 15 GM TUBE TP SCH (17:00)
[2023-06-25] MEDS: MORPHINE SULFATE INJ 2 MG/ML DISP.SYRIN IV PRN (17:43)
[2023-06-25] MEDS ORDERED: ANESTHESIA TRAY IN PYXIS 1 EA TRAY MC ONE (18:12)
[2023-06-25] MEDS ORDERED: BUPIVACAINE 0.5 % PF 150 MG/30 ML VIAL ONE (18:13)
[2023-06-25] MEDS ORDERED: LIDOCAINE 1% INJ 50 ML MDV IJ ONE (18:13)
[2023-06-25] MEDS ORDERED: LIDOCAINE HCL/MPF 1% 30 ML VIAL IJ ONE (18:14)
[2023-06-25] MEDS ORDERED: FENTANYL PF 100MCG/2ML AMPUL ONE (18:26)
[2023-06-25] MEDS ORDERED: MIDAZOLAM HCL 2 MG/2ML VIAL ONE (18:26)
[2023-06-25] MEDS ORDERED: ROCURONIUM BROMIDE 50 MG/5 ML ONE (18:26)
[2023-06-25] MEDS ORDERED: HYDROMORPHONE INJ 2 MG/ML DISP.SYRIN ONE (20:03)
[2023-06-25] MEDS ORDERED: SEVOFLURANE 250 ML BOTTLE IH ONE (20:04)
[2023-06-25] MEDS: CEFEPIME 2 GM in IV D5W 100 ML IV SCH (21:37)
[2023-06-25] MEDS ORDERED: OLANZAPINE 5 MG TABLET PO SCH (22:00)
[2023-06-25] MEDS: INSULIN GLARGINE, 100 UNIT/ML CARTRIDGE SQ SCH (22:20)
[2023-06-25] MEDS: TRAZODONE 50 MG TABLET PO SCH (22:26)
[2023-06-25] MEDS ORDERED: HYDROCODONE/APAP 5/325MG TABLET PO PRN (22:30)
[2023-06-25] MEDS ORDERED: LORAZEPAM 1 MG TABLET PO PRN (22:30)
[2023-06-26] VITALS: BP 116/78; O2SAT 98
[2023-06-26] MEDS: HYDROCODONE/APAP 10/325MG TABLET PO PRN ×2 (00:28→06:01)
[2023-06-26] MEDS: METRONIDAZOLE 500MG/ NS 100ML 500 MG in PREMIX 1 EA IV SCH ×3 (01:25→17:24)
[2023-06-26 06:19] LABS: CALCIUM, SERUM 8.7 mg/dL (8.5-10.1); CREATININE 0.7 mg/dL (0.6-1.3); POTASSIUM 3.7 mmol/L (3.5-5.1)
[2023-06-26] MEDS: BLOOD SUGAR DIAGNOSTIC 1 EACH STRIP IN SCH ×4 (06:55→21:05)
[2023-06-26] MEDS: INSULIN REGULAR, HUMAN 100 UNIT/ML 3 ML VIAL SQ PRN ×4 (07:02→21:11)
[2023-06-26 08:00] VITALS: BP 153/57; TEMP 97.9; O2SAT 99
[2023-06-26] MEDS: CEFEPIME 2 GM in IV D5W 100 ML IV SCH ×2 (08:12→20:03)
[2023-06-26] MEDS: GABAPENTIN 300 MG CAPSULE PO SCH ×3 (08:14→17:14)
[2023-06-26] MEDS: CHOLECALCIFEROL 1,000 UNIT TABLET (VIT D3) PO SCH (08:14)
[2023-06-26] MEDS: DOCUSATE SODIUM 100 MG CAPSULE PO SCH (08:14)
[2023-06-26] MEDS: LITHIUM CARBONATE (300 MG CAP) 300 MG CAPSULE PO SCH ×3 (08:15→17:13)
[2023-06-26] MEDS: DIVALPROEX SODIUM 125 MG CAP.SPRINK PO SCH ×3 (08:15→17:13)
[2023-06-26] MEDS: risperiDONE 1 MG TABLET PO SCH ×2 (08:16→17:14)
[2023-06-26] MEDS: LOSARTAN POTASSIUM 25 MG TABLET PO SCH (08:17)
[2023-06-26] MEDS: DAKINS QUARTER STRENGTH (0.125%) 480 ML BOTTLE TOP SCH ×2 (08:20→17:15)
[2023-06-26] MEDS: PRAZOSIN HCL 1 MG CAPSULE PO SCH (08:21)
[2023-06-26] MEDS: EMPAGLIFLOZIN 25 MG TABLET PO SCH (08:21)
[2023-06-26] MEDS: POLYVINYL ALCOHOL 15 ML BOTTLE EACHEYE SCH ×2 (08:24→17:14)
[2023-06-26] MEDS: VANCOMYCIN 1.25 GM in IV D5W 250 ML IV SCH (08:59)
[2023-06-26] MEDS: CLOTRIMAZOLE 1% 15 GM TUBE TP SCH ×2 (09:38→17:13)
[2023-06-26] MEDS ORDERED: VANCOMYCIN 500 MG in IV D5W 100ml IV ONE (10:45)
[2023-06-26 16:00] VITALS: BP 134/86; TEMP 97.9; O2SAT 100
[2023-06-26] MEDS: VANCOMYCIN 1 GM in IV D5W 250ml IV SCH (17:25)
[2023-06-26] MEDS: TRAZODONE 50 MG TABLET PO SCH (21:05)
[2023-06-26] MEDS: INSULIN GLARGINE, 100 UNIT/ML CARTRIDGE SQ SCH (21:09)
[2023-06-27] MEDS: METRONIDAZOLE 500MG/ NS 100ML 500 MG in PREMIX 1 EA IV SCH ×2 (01:22→10:50)
[2023-06-27] MEDS: VANCOMYCIN 1 GM in IV D5W 250ml IV SCH ×2 (02:24→10:50)
[2023-06-27 05:52] LABS: BASOPHILS % (AUTO) 0.2 % (0.0-2.0); EOSINOPHILS # (AUTO) 0.2 K/uL (0.0-0.7); EOSINOPHILS % (AUTO) 1.8 % (0.0-6.0); HEMATOCRIT 42 % (39-51); HEMOGLOBIN 13.8 g/dL (13.5-17.5); LYMPHOCYTES # (AUTO) 1.4 K/uL (0.8-4.8); MEAN CORPUSCULAR HEMOGLOBIN 30 PG (26.0-33.0); MEAN CORPUSCULAR HGB CONC 33 g/dl (31.0-36.0); MEAN CORPUSCULAR VOLUME 91 fL (80-96); MONOCYTES # (AUTO) 1.2 K/uL (0.1-1.30); MONOCYTES % (AUTO) 9.7 % (2.0-12.0); NEUTROPHILS # (AUTO) 9.1 K/uL (1.8-8.9); NEUTROPHILS % (AUTO) 76.3 % (43.0-81.0); PLATELET COUNT (AUTO) 312 K/uL (150-450); RED CELL DISTRIBUTION WIDTH 13.4 % (11.5-15.0)
[2023-06-27 06:03] LABS: CALCIUM, SERUM 8.3 mg/dL (8.5-10.1); CREATININE 0.7 mg/dL (0.6-1.3); MAGNESIUM 2.4 mg/dL (1.8-2.4); POTASSIUM 4.4 mmol/L (3.5-5.1)
[2023-06-27] MEDS: BLOOD SUGAR DIAGNOSTIC 1 EACH STRIP IN SCH ×2 (06:58→12:13)
[2023-06-27] MEDS: INSULIN REGULAR, HUMAN 100 UNIT/ML 3 ML VIAL SQ PRN ×2 (07:05→12:27)
[2023-06-27] MEDS ORDERED: CEFE2FRO IV (08:00)
[2023-06-27] MEDS ORDERED: CLIN300C12 PO (08:00)
[2023-06-27] MEDS: MORPHINE SULFATE INJ 2 MG/ML DISP.SYRIN IV PRN (08:33)
[2023-06-27] MEDS: DIVALPROEX SODIUM 125 MG CAP.SPRINK PO SCH ×2 (08:34→13:48)
[2023-06-27] MEDS: risperiDONE 1 MG TABLET PO SCH (08:42)
[2023-06-27] MEDS: LITHIUM CARBONATE (300 MG CAP) 300 MG CAPSULE PO SCH ×2 (08:42→13:48)
[2023-06-27] MEDS: CHOLECALCIFEROL 1,000 UNIT TABLET (VIT D3) PO SCH (08:42)
[2023-06-27] MEDS: DOCUSATE SODIUM 100 MG CAPSULE PO SCH (08:42)
[2023-06-27] MEDS: PRAZOSIN HCL 1 MG CAPSULE PO SCH (08:43)
[2023-06-27] MEDS: GABAPENTIN 300 MG CAPSULE PO SCH ×2 (08:43→13:48)
[2023-06-27 08:44] VITALS: BP 136/93
[2023-06-27] MEDS: LOSARTAN POTASSIUM 25 MG TABLET PO SCH (08:44)
[2023-06-27] MEDS: CEFEPIME 2 GM in IV D5W 100 ML IV SCH (08:52)
[2023-06-27] MEDS: POLYVINYL ALCOHOL 15 ML BOTTLE EACHEYE SCH (08:52)
[2023-06-27] MEDS: EMPAGLIFLOZIN 25 MG TABLET PO SCH (08:52)
[2023-06-27] MEDS: DAKINS QUARTER STRENGTH (0.125%) 480 ML BOTTLE TOP SCH (08:53)
[2023-06-27] MEDS: CLOTRIMAZOLE 1% 15 GM TUBE TP SCH (08:53)
[2023-06-27] MEDS ORDERED: VANCOMYCIN 500 MG in IV D5W 100ml IV ONE (12:00)
== END 2023-06-27 14:50 | DRG 711 ==
LOC: ER 19:48 → MED 23:27
PROVIDERS: ADMIT Nurse Practitioner Acute Care; ATTEND Nurse Practitioner Acute Care
PROC: 0V950ZZ Drainage of Scrotum, Open Approach (ICD-10-PCS; 2023-06-24)
PROC: 0VBB0ZZ Excision of Left Testis, Open Approach (ICD-10-PCS; principal; 2023-06-25)
DX: N49.2 Inflammatory disorders of scrotum (principal); E43 Unspecified severe protein-calorie malnutrition; G93.41 Metabolic encephalopathy; F03.94 Unspecified dementia, unspecified severity, with anxiety; F25.0 Schizoaffective disorder, bipolar type; E11.9 Type 2 diabetes mellitus without complications; I10 Essential (primary) hypertension; D72.829 Elevated white blood cell count, unspecified; E66.9 Obesity, unspecified; E88.09 Other disorders of plasma-protein metabolism, not elsewhere classified; Z88.0 Allergy status to penicillin; Z79.84 Long term (current) use of oral hypoglycemic drugs; Z89.511 Acquired absence of right leg below knee; Z79.4 Long term (current) use of insulin; N40.0 Benign prostatic hyperplasia without lower urinary tract symptoms; Z87.440 Personal history of urinary (tract) infections; F41.9 Anxiety disorder, unspecified; Z68.30 Body mass index [BMI] 30.0-30.9, adult; N43.2 Other hydrocele; L98.8 Other specified disorders of the skin and subcutaneous tissue; N50.89 Other specified disorders of the male genital organs
CPT/HCPCS: 36415; 72193-TC; 80048-TC; 80076-TC; 80202-TC; 81001; 82962-TC; 83605-TC; 83735-TC; 84100-TC; 85025-TC; 85652-TC; 85730-TC; 87040-TC; 87086-TC; A4216; A4223; A6253; A6403; A6407; G0378; J0690; J0692; J1170; J1815; J2250; J2270; J2405; J2704; J3010; J3370; J3490; J7030; J7050; J7060; Q9967

== ENCOUNTER 2023-07-05 13:38 | Inpatient (IN) | payer MEDICARE, OTHER ==
[~2023-07-05] VITALS: Ht 172.7 cm; Wt 88.0 kg
[~2023-07-05 13:38] MED LIST changes: +ACET-868 PO; +CEFE2FRO IV; +CLIN300C12 PO; +DEXT50DI8 IV; +DIVA125C5 PO; +LORA-259 PO; +NICO-762 TD; +RISP4TAB70 PO; +SODI473S8 TP; +TRAZ-182 PO
[2023-07-05 14:00] VITALS: O2SAT 97
[2023-07-05] MEDS ORDERED: CEFEPIME 1 GM in IV D5W 50 ML IV ONE (15:00)
[2023-07-05] MEDS ORDERED: VANCOMYCIN 1 GM in IV D5W 250 ML IV ONE (15:00)
[2023-07-05 15:28] LABS: APPEARANCE,URINE CLEAR (CLEAR); BILIRUBIN,URINE NEGATIVE (NEGATIVE); BLOOD, URINE NEGATIVE Ery/uL (NEGATIVE); COLOR,URINE YELLOW (YELLOW); KETONES,URINE NEGATIVE (NEGATIVE); LEUKOCYTE ESTERASE ,URINE NEGATIVE (NEGATIVE); NITRITE, URINE NEGATIVE (NEGATIVE); PH,URINE 6.5 (5.0-8.0); PROTEIN,URINE NEGATIVE (NEGATIVE); UGLUCOSE 3+ mg/dL (NEGATIVE); UROBILINOGEN,URINE 0.2 EU/dL (0.2)
[2023-07-05] MEDS ORDERED: DIVA-76 PO (15:31)
[2023-07-05] MEDS ORDERED: ONDA4TAB5 PO (15:31)
[2023-07-05] MEDS ORDERED: MAG-151 PO (15:31)
[2023-07-05] MEDS ORDERED: CLIN300C12 PO (15:31)
[2023-07-05] MEDS ORDERED: DEXT15DR6 EACHEYE (15:31)
[2023-07-05] MEDS ORDERED: ZOLP5TAB8 PO (15:31)
[2023-07-05] MEDS ORDERED: MAGN400O6 PO (15:31)
[2023-07-05 15:44] LABS: BASOPHILS # (AUTO) 0.1 K/uL (0.0-0.2); BASOPHILS % (AUTO) 0.9 % (0.0-2.0); EOSINOPHILS # (AUTO) 0.3 K/uL (0.0-0.7); EOSINOPHILS % (AUTO) 2.3 % (0.0-6.0); HEMATOCRIT 45 % (39-51); HEMOGLOBIN 14.9 g/dL (13.5-17.5); LYMPHOCYTES # (AUTO) 2.3 K/uL (0.8-4.8); LYMPHOCYTES % (AUTO) 18.5 % (20.0-44.0); MEAN CORPUSCULAR HEMOGLOBIN 30 PG (26.0-33.0); MEAN CORPUSCULAR HGB CONC 33 g/dl (31.0-36.0); MEAN CORPUSCULAR VOLUME 90 fL (80-96); MONOCYTES # (AUTO) 0.9 K/uL (0.1-1.30); MONOCYTES % (AUTO) 7.5 % (2.0-12.0); NEUTROPHILS # (AUTO) 8.9 K/uL (1.8-8.9); NEUTROPHILS % (AUTO) 70.8 % (43.0-81.0); PLATELET COUNT (AUTO) 390 K/uL (150-450); RED CELL DISTRIBUTION WIDTH 13.8 % (11.5-15.0); WHITE BLOOD COUNT (AUTO) 12.6 K/uL (4.3-11.0)
[2023-07-05 15:46] LABS: ADD URINE CULTURE NO; BACTERIA,URINE None seen /HPF (None Seen); RBC,URINE 0-2 /HPF (0-2); SQUAMOUS EPITHELIAL CELL,UR 0-2 /HPF (None Seen); WBC,URINE 0-2 /HPF (0-3)
[2023-07-05 16:21] LABS: LACTIC ACID 1.9 mmol/L (0.4-2.0)
[2023-07-05] MEDS ORDERED: DEXTROSE 50%-WATER 50 ML DISP.SYRIN IV PRN (16:30)
[2023-07-05] MEDS ORDERED: ONDANSETRON HCL/PF 4 MG/2 ML VIAL IVP PRN (16:30)
[2023-07-05] MEDS ORDERED: IV 1/2NS 1000 ML 1,000 ML IV PRN (16:30)
[2023-07-05] MEDS ORDERED: HYDROCODONE/APAP 5/325MG TABLET PO PRN (16:30)
[2023-07-05] MEDS ORDERED: Z GUARD REMEDY 4 OZ OINT TP PRN (16:30)
[2023-07-05] MEDS ORDERED: ACETAMINOPHEN 325 MG TABLET PO PRN (16:30)
[2023-07-05 16:32] LABS: ALBUMIN 2.5 g/dL (3.4-5.0); BILIRUBIN,DIRECT 0.1 mg/dL (0.0-0.2); BILIRUBIN,TOTAL 0.2 mg/dL (0.2-1.0); CALCIUM, SERUM 9.3 mg/dL (8.5-10.1); CREATININE 0.9 mg/dL (0.6-1.3); POTASSIUM 4.1 mmol/L (3.5-5.1); TOTAL PROTEIN, SERUM 8.4 g/dL (6.4-8.2)
[2023-07-05] MEDS ORDERED: IOHEXOL-300 100 ML VIAL IV ONE (16:38)
[2023-07-05] MEDS: BLOOD SUGAR DIAGNOSTIC 1 EACH STRIP IN SCH ×3 (17:30→22:04)
[2023-07-05 20:30] VITALS: BP 131/91; TEMP 97.9; O2SAT 85
[2023-07-05] MEDS: CEFEPIME 2 GM in IV D5W 100 ML IV SCH (22:03)
[2023-07-06 05:53] LABS: BASOPHILS % (AUTO) 0.2 % (0.0-2.0); EOSINOPHILS # (AUTO) 0.1 K/uL (0.0-0.7); EOSINOPHILS % (AUTO) 0.4 % (0.0-6.0); HEMATOCRIT 47 % (39-51); HEMOGLOBIN 15.3 g/dL (13.5-17.5); LYMPHOCYTES # (AUTO) 1.4 K/uL (0.8-4.8); MEAN CORPUSCULAR HEMOGLOBIN 30 PG (26.0-33.0); MEAN CORPUSCULAR HGB CONC 33 g/dl (31.0-36.0); MEAN CORPUSCULAR VOLUME 90 fL (80-96); MONOCYTES # (AUTO) 1.1 K/uL (0.1-1.30); MONOCYTES % (AUTO) 5.5 % (2.0-12.0); NEUTROPHILS # (AUTO) 17.3 K/uL (1.8-8.9); NEUTROPHILS % (AUTO) 86.9 % (43.0-81.0); PLATELET COUNT (AUTO) 394 K/uL (150-450); RED BLOOD CELL COUNT(AUTO) 5.18 MIL/uL (4.5-6.0); RED CELL DISTRIBUTION WIDTH 13.7 % (11.5-15.0); WHITE BLOOD COUNT (AUTO) 19.9 K/uL (4.3-11.0)
[2023-07-06 06:12] LABS: CALCIUM, SERUM 9.2 mg/dL (8.5-10.1); MAGNESIUM 2.1 mg/dL (1.8-2.4); PHOSPHORUS 5.3 mg/dL (2.5-4.9); POTASSIUM 4.4 mmol/L (3.5-5.1)
[2023-07-06] MEDS: BLOOD SUGAR DIAGNOSTIC 1 EACH STRIP IN SCH ×2 (07:01→11:52)
[2023-07-06] MEDS: INSULIN REGULAR, HUMAN 100 UNIT/ML 3 ML VIAL SQ PRN ×2 (07:02→11:51)
[2023-07-06] MEDS ORDERED: PANTOPRAZOLE 40 MG TABLET.DR PO SCH (07:30)
[2023-07-06 08:00] VITALS: BP 138/93; TEMP 98; O2SAT 95
[2023-07-06] MEDS: CEFEPIME 2 GM in IV D5W 100 ML IV SCH (08:15)
[2023-07-06] MEDS: CLOTRIMAZOLE 1% 15 GM TUBE TP SCH ×2 (11:52→16:06)
[2023-07-06 16:21] VITALS: BP 157/94; TEMP 98; O2SAT 97
== END 2023-07-06 16:50 | DRG 728 ==
LOC: ER 13:58 → TRANSITION 17:40 → MED 19:23
DX: N49.2 Inflammatory disorders of scrotum (principal); F31.9 Bipolar disorder, unspecified; F41.9 Anxiety disorder, unspecified; I10 Essential (primary) hypertension; E11.9 Type 2 diabetes mellitus without complications; Z87.891 Personal history of nicotine dependence; Z79.84 Long term (current) use of oral hypoglycemic drugs; Z53.20 Procedure and treatment not carried out because of patient's decision for unspecified reasons; Z90.79 Acquired absence of other genital organ(s); Z88.0 Allergy status to penicillin
CPT/HCPCS: 36415; 72192-TC; 76870-TC; 80048-TC; 80076-TC; 81001; 82962-TC; 83605-TC; 83690-TC; 83735-TC; 84100-TC; 85025-TC; 87040-TC; 87081-TC; 87086-TC; A4223; G0378; J0692; J3370; J3490; J7060; Q9967